=== PATIENT | female | born 1960 | race Caucasian/White ===

== ENCOUNTER 2016-10-23 08:05 | Outpatient (CLI) | payer MEDICAID | END 2016-10-23 08:06 | disposition home or self-care (01) | DX: E11.9 Type 2 diabetes mellitus without complications (principal) ==

== ENCOUNTER 2017-01-22 08:03 | Outpatient (CLI) | payer MEDICAID | END 2017-01-22 08:04 | disposition home or self-care (01) | DX: E11.9 Type 2 diabetes mellitus without complications (principal) ==

== ENCOUNTER 2017-03-19 08:38 | Day surgery (SDC) | payer MEDICAID ==
[2017-03-19] MEDS ORDERED: LACTATED RINGERS 1,000 ML IV ONE (08:51)
[2017-03-19] MEDS ORDERED: GLYCOPYRROLATE 1 MG/5 ML VIAL ONE (11:30)
[2017-03-19] MEDS ORDERED: fentaNYL 100 MCG/2 ML VIAL IVP ONE (11:50)
[2017-03-19] MEDS ORDERED: LIDOCAINE-MPF 2% 5 ML VIAL IM ONE (11:50)
[2017-03-19] MEDS ORDERED: DEXAMETHASONE 4 MG/ML VIAL IVP ONE (11:50)
[2017-03-19] MEDS ORDERED: SUCCINYLCHOLINE 200 MG/10 ML VIAL IVP ONE (11:50)
[2017-03-19] MEDS ORDERED: ALBUTEROL 6.7 GM INHALER INH ONE (11:50)
[2017-03-19] MEDS ORDERED: PROPOFOL 200 MG/20 ML VIAL IVP ONE (11:50)
[2017-03-19] MEDS ORDERED: GLYCOPYRROLATE 1 MG/5 ML VIAL IVP ONE (11:50)
[2017-03-19] MEDS ORDERED: MIDAZOLAM 2 MG/2 ML VIAL IVP ONE (11:50)
[2017-03-19] MEDS ORDERED: ONDANSETRON 4 MG/2 ML VIAL IVP ONE (11:50)
[2017-03-19] MEDS ORDERED: KETOROLAC 30 MG/ML VIAL IVP ONE (11:50)
[2017-03-19] MEDS ORDERED: NEOSTIGMINE 1 MG/1 ML 10 ML MDV IVP ONE (11:50)
[2017-03-19] MEDS ORDERED: KETAMINE 500 MG/10 ML VIAL IVP ONE (11:50)
[2017-03-19] MEDS ORDERED: BUPIVACAINE 0.5%-EPI 1:200000 PF 30 ML VIAL SUBQ ONE (11:51)
[2017-03-19] MEDS ORDERED: LIDOCAINE JELLY 2% 5 ML TUBE TOP ONE (11:53)
[2017-03-19 13:35] VITALS: BP 127/82
--- NOTE | 2017-03-19 13:55 | OPERATIVE REPORT ---
DATE OF SURGERY: 03/19/2017 00:00:00 TIME: 12:30. PREOPERATIVE DIAGNOSIS: Anal fissure. PROCEDURE: Examination under anesthesia, anal dilation, and anal fissurectomy. POSTOPERATIVE DIAGNOSES 1. Anal fissure. 2. Significant anal prolapse and rectal prolapse. SURGEON: Goran Anne MD. ANESTHESIA: Saldaña (general endotracheal), plus 30 mL of 0.5% Marcaine with epinephrine. COMPLICATIONS: None. ESTIMATED BLOOD LOSS: Less than 5 mL. FLUIDS: 700 mL crystalloid. DETAILS OF PROCEDURE: After informed consent was obtained detailing the risks of infection, bleeding with all of its risks, and , the patient was brought to the operative suite and placed supine on the operating table. No antibiotics were necessary for this procedure. The patient had TEDs and Veno dynes placed for prophylaxis against surgical infection. The patient was then anesthetized per the pr ocedure by Francisco Saldaña, and Francisco Saldaña provided anesthesia care for the entirety of the case. Th e patient was then placed in modified lithotomy position and prepped and draped in the usual standard manner. At this point, a time-in was done that confirmed the patient's identity via 3 identifiers in cluding her name, medical record number, and date of . We also confirmed her allergies, medicati ons, the operation. We made sure that a history and physical was in the chart, as well as a consent f orm and that consent form conformed to what the proposed procedure was. Finally, we confirmed that we had the personnel and equipment to perform the proposed procedure. With the agreement of everyone in the room, the operation was allowed to proceed. External examination revealed a fissure at the 6-o'clock position, but external examination also reve aled a significant anorectal prolapse. This was not appreciated in the office as the patient was not bearing down. In addition, the patient was not in this position in my office. My initial thought was that anal stenosis was playing a role in the fissure formation, but in reality this is a prolapse cau sing this fissure to form. The anus was circumferentially injected using 0.5% Marcaine with epinephri ne. More attention was placed at the 6-o'clock position, which was the location of the fissure. One, two, then three fingers were placed in the patient's anus without any resistance due to the large susie ure of the anus, due to the anal dilation. The fissure was resected using serial application of Bovie electrocautery. A Gelfoam roll consisting of Gelfoam and lidocaine jelly was then made and inserted in the patient's anus. A small what appeared to be an anal papilla at the 6 o'clock position was russ rishi using Bovie electrocautery and sent for pathologic evaluation. The patient, then having tolerated the procedure well, was extubated and taken to the recovery room in good and stable condition. JOB #: [id number] EXT JOB #:[id number]
== END 2017-03-19 08:39 | disposition home or self-care (01) ==
LOC: SDS 08:38
PROVIDERS: ATTEND Surgery
PROC: 0DBQ7ZZ Excision of Anus, Via Natural or Artificial Opening (ICD-10-PCS; principal; 2017-03-19 09:45)
DX: K60.2 Anal fissure, unspecified (principal); K64.4 Residual hemorrhoidal skin tags; K62.2 Anal prolapse; K62.3 Rectal prolapse; E66.01 Morbid (severe) obesity due to excess calories; Z68.37 Body mass index [BMI] 37.0-37.9, adult; E11.9 Type 2 diabetes mellitus without complications; E78.5 Hyperlipidemia, unspecified; F31.9 Bipolar disorder, unspecified
CPT/HCPCS: 46200; J3490; J7120; J7613; 88304

== ENCOUNTER 2017-05-31 08:16 | Outpatient (CLI) | payer MEDICAID ==
[2017-05-31 08:50] LABS: BASOPHILS # (AUTO) 0.1 10^3/uL (0.0-0.1); BASOPHILS % (AUTO) 0.7 %; EOSINOPHILS # (AUTO) 0.3 10^3/uL (0.0-0.7); EOSINOPHILS % (AUTO) 4.1 %; HCT - HEMATOCRIT 43.6 % (37.0-47.0); HGB - HEMOGLOBIN 14.9 g/dL (12.0-16.0); LYMPHOCYTES # (AUTO) 2.8 10^3/uL (1.5-3.5); LYMPHOCYTES % (AUTO) 37.5 %; MEAN CORPUSCULAR HEMOGLOBIN 31.1 pg (27.0-31.0); MEAN CORPUSCULAR HGB CONC 34.3 g/dL (32.0-36.0); MEAN CORPUSCULAR VOLUME 90.7 fL (81.0-99.0); MEAN PLATELET VOLUME 8.1 fL (7.9-10.8); MONOCYTES # (AUTO) 0.5 10^3/uL (0.0-1.0); MONOCYTES % (AUTO) 7.4 %; NEUTROPHILS # (AUTO) 3.7 10^3/uL (1.5-6.6); NEUTROPHILS % (AUTO) 50.3 %; NUCLEATED RED BLOOD CELLS AUTO 0.1 /100WBC; RED CELL DISTRIBUTION WIDTH 14.5 % (12.0-15.0); UNCORRECTED WHITE BLOOD COUNT 7.4 x10^3/uL; WHITE BLOOD COUNT 7.4 x10^3/uL (4.8-10.8)
[2017-05-31 09:06] LABS: ALBUMIN/GLOBULIN RATIO 1.6 (1.0-2.2); BILIRUBIN,TOTAL 0.5 mg/dL (0.2-1.0); BUN - BLOOD UREA NITROGEN 17 mg/dL (6-20); CALCIUM 8.9 mg/dL (8.5-10.3); CARBON DIOXIDE - CO2 25 mmol/L (21-32); CHLORIDE 106 mmol/L (101-111); CHOLESTEROL 113 mg/dL; CREATININE 0.9 mg/dL (0.4-1.0); GFR - MDRD 65 (>89); GLUCOSE 201 mg/dL (70-100); HDL CHOLESTEROL 28 mg/dL; LDL/HDL RATIO 0.2 (<4.4); POTASSIUM 4.2 mmol/L (3.5-5.0); SODIUM 139 mmol/L (135-145); TOTAL PROTEIN 6.9 g/dL (6.7-8.2); TRIGLYCERIDES 399 mg/dL; VLDL CHOLESTEROL 80 mg/dL
[2017-05-31 09:40] LABS: HEMOGLOBIN A1C 0.92 g/dL
== END 2017-05-31 08:17 | disposition home or self-care (01) ==
LOC: LAB 08:16
PROVIDERS: ATTEND Family Medicine
DX: E78.5 Hyperlipidemia, unspecified (principal); E11.9 Type 2 diabetes mellitus without complications
CPT/HCPCS: 36415; 80053; 80061; 83036; 85025

== ENCOUNTER 2017-09-12 14:49 | Outpatient (CLI) | payer MEDICAID ==
[2017-09-12 14:08] LABS: HEMOGLOBIN A1C 1.12 g/dL
[2017-09-12 14:09] LABS: ALBUMIN/GLOBULIN RATIO 1.9 (1.0-2.2); BILIRUBIN,TOTAL 0.5 mg/dL (0.2-1.0); BUN - BLOOD UREA NITROGEN 16 mg/dL (6-20); CALCIUM 9.3 mg/dL (8.5-10.3); CARBON DIOXIDE - CO2 26 mmol/L (21-32); CHLORIDE 102 mmol/L (101-111); CHOL/HDL RATIO 4.1 (<4.4); CHOLESTEROL 123 mg/dL; CREATININE 0.8 mg/dL (0.4-1.0); GFR - MDRD 74 (>89); GLUCOSE 225 mg/dL (70-100); HDL CHOLESTEROL 30 mg/dL; POTASSIUM 3.8 mmol/L (3.5-5.0); SODIUM 136 mmol/L (135-145); TOTAL PROTEIN 6.9 g/dL (6.7-8.2); TRIGLYCERIDES 492 mg/dL
[2017-09-12 14:28] LABS: LDL CHOLESTEROL,DIRECT 38 mg/dL
== END 2017-09-12 14:50 | disposition home or self-care (01) ==
LOC: LAB.N 14:49
PROVIDERS: ATTEND Family Medicine
DX: E11.65 Type 2 diabetes mellitus with hyperglycemia (principal); E78.5 Hyperlipidemia, unspecified
CPT/HCPCS: 36415; 80053; 80061; 83036

== ENCOUNTER 2018-03-25 07:02 | Outpatient (CLI) | payer MEDICAID ==
[2018-03-25 08:03] LABS: HEMOGLOBIN A1C 0.68 g/dL; HEMOGLOBIN A1C % 6.3 % (4.6-6.2)
== END 2018-03-25 07:03 | disposition home or self-care (01) ==
LOC: LAB 07:02
PROVIDERS: ATTEND Nurse Practitioner Family
DX: E11.9 Type 2 diabetes mellitus without complications (principal)
CPT/HCPCS: 36415; 83036

== ENCOUNTER 2018-05-07 08:21 | Outpatient (CLI) | payer MEDICAID ==
--- NOTE | 2018-05-08 17:23 | Mammography Report ---
Procedure Date: 05/07/2018 Accession Number: [id number] / [id number] Procedure: MGN - Screening Mammo Dig Bilat CPT Code: FULL RESULT: EXAM: Screening Mammo Dig Bilat DATE: 05/07/2018 8:44 AM CLINICAL HISTORY: 57-year-old female with family history of breast cancer in an aunt at unknown age and approximately 20 pounds weight loss since her last mammogram in 2013 presents for screening mammography. TECHNIQUE: Bilateral CC and MLO views were obtained. COMPARISON: 04/15/2014, 04/10/2013, 12/19/2011, 12/25/2010. FINDINGS: The breasts demonstrate scattered fibroglandular densities bilaterally. No suspicious masses, clustered microcalcifications, or regions of architectural distortion are identified. IMPRESSION: Negative examination RECOMMENDATION: Routine annual screening unless otherwise clinically indicated. BIRADS CATEGORY 1: Negative STANDARD QUALIFYING STATEMENTS: 1. This examination was reviewed with the aid of Computer-Aided Detection (CAD). 2. A negative or benign imaging report should not delay biopsy if clinically suspicious findings are present. Consider surgical consultation if warrented. More than 5% of cancers are not identified by imaging. 3. Dense breasts may obscure an underlying neoplasm.
== END 2018-05-07 08:22 | disposition home or self-care (01) ==
LOC: DI.N 08:21
PROVIDERS: ATTEND Obstetrics & Gynecology
DX: Z12.31 Encounter for screening mammogram for malignant neoplasm of breast (principal); Z80.3 Family history of malignant neoplasm of breast
CPT/HCPCS: 77067

== ENCOUNTER 2018-07-10 08:20 | Outpatient (CLI) | payer MEDICAID ==
[2018-07-10 09:11] LABS: BUN - BLOOD UREA NITROGEN 23 mg/dL (6-20); CALCIUM 9.1 mg/dL (8.5-10.3); CARBON DIOXIDE - CO2 24 mmol/L (21-32); CHLORIDE 104 mmol/L (101-111); CHOL/HDL RATIO 3.5 (<4.4); CHOLESTEROL 94 mg/dL; GFR - MDRD 57 (>89); GLUCOSE 154 mg/dL (70-100); HDL CHOLESTEROL 27 mg/dL; LDL CHOLESTEROL,CALCULATED -5 mg/dL; LDL/HDL RATIO -0.2 (<4.4); SODIUM 137 mmol/L (135-145); VLDL CHOLESTEROL 72 mg/dL
[2018-07-10 13:32] LABS: HB2 TOTAL 15.8 g/dL; HEMOGLOBIN A1C 0.73 g/dL; HEMOGLOBIN A1C % 6.4 % (4.6-6.2)
== END 2018-07-10 08:21 | disposition home or self-care (01) ==
LOC: LAB 08:20
PROVIDERS: ATTEND Nurse Practitioner Family
DX: E11.9 Type 2 diabetes mellitus without complications (principal); E78.5 Hyperlipidemia, unspecified
CPT/HCPCS: 36415; 80048; 80061; 82043; 83036; 83721

== ENCOUNTER 2018-09-26 14:19 | Outpatient (CLI) | payer MEDICAID ==
--- NOTE | 2018-09-26 17:00 | DEXA Report ---
Reason: POSTMENOPAUSAL, FIBROMYALGIA, LOW BACK PAIN Procedure Date: 09/26/2018 Accession Number: [id number] / [id number] Procedure: DEX - Dexa Spine and/or Hip CPT Code: FULL RESULT: EXAM: Dexa Spine and/or Hip DATE: 09/26/2018 2:45 PM CLINICAL HISTORY: POSTMENOPAUSAL, FIBROMYALGIA, LOW BACK PAIN TECHNIQUE: Dual energy x-ray absorptiometry (DXA) was performed on a [employer] System. Regions measured are the AP Spine, femoral neck, and if needed forearm. COMPARISON: None. In accordance with the International Society for Clinical Densitometry (ISCD) guidelines, data from previous exams may be reanalyzed using current recommendations and techniques. This is done to allow a more accurate basis for comparison with the current study. FINDINGS: The data for the lumbar spine is as follows: BMD (g/cm/cm) T-SCORE Z-SCORE REGION L1 1.230 0.8 0.9 L2 1.181 -0.2 -0.1 L3 1.146 -0.4 -0.4 L4 1.273 0.6 0.7 TOTAL 1.211 0.3 0.3 NOTE: All evaluable vertebrae are used for classification The data for the hip is as follows: BMD (g/cm/cm) T-SCORE Z-SCORE REGION Neck 0.847 -1.4 -0.8 TOTAL 1.027 0.1 0.3 NOTE: The femoral neck or total proximal femur, whichever is lowest, is used for classification. IMPRESSION: THE WHO CLASSIFICATION BASED ON THE INTERNATIONAL REFERENCE STANDARD IS OSTEOPENIA. THE FRACTURE RISK IS INCREASED. RECOMMENDATION: Patients with diagnosis of osteoporosis or osteopenia should have regular bone mineral density assessment. For those eligible for Medicare, routine testing is allowed once every 2 years. Testing frequency can be increased for patients who have rapidly progressing disease or for those who are receiving medical therapy to restore bone mass. COMMENT: World Health Organization (WHO) definitions for osteoporosis and osteopenia: NORMAL BMD: T-score at -1.0 or higher, fracture risk is low OSTEOPENIA BMD: T-score between -1.0 and -2.5, fracture risk is increased. OSTEOPOROSIS BMD: T-score at -2.5 or lower, fracture risk is high. National Osteoporosis Foundation recommends: 1. Obtain adequate dietary calcium (at least 1200 mg per day) and vitamin D (400-800 international units per day). 2. Participate, as appropriate, in regular weightbearing and muscle-strengthening exercise. 3. Avoid tobacco use and reduce alcohol and caffeine intake. 4. For more detailed information see the website at www.NOF.org.
--- NOTE | 2018-09-28 15:28 | XRAY Report ---
Reason: POSTMENOPAUSAL, FIBROMYALGIA, LOW BACK PAIN Procedure Date: 09/26/2018 Accession Number: [id number] / [id number] Procedure: XR - Lumbar Spine 2 View CPT Code: FULL RESULT: EXAM: LUMBOSACRAL SPINE RADIOGRAPHY EXAM DATE: 09/26/2018 02:50 PM. CLINICAL HISTORY: POSTMENOPAUSAL, FIBROMYALGIA, LOW BACK PAIN. COMPARISONS: LUMBAR SPINE COMPLETE 09/05/2013 2:37 PM. TECHNIQUE: 2 views. FINDINGS: Alignment: Normal. No spondylolisthesis or scoliosis. Bones: Five ebi-urz-hnvhxce lumbar vertebral bodies are present. Minimal anterior wedge compression deformity of the T12 and L1 vertebral bodies appears unchanged compared to 09/05/2013. No acute fractures or bone lesions. Disks: There is mild disk height loss and anterior endplate osteophyte formation throughout the lumbar spine. Facets: There are mild degenerative facet changes of the lower lumbar spine. Sacroiliac Joints: Unremarkable. Soft Tissues: Normal. The visualized bowel gas pattern is normal. IMPRESSION: 1. No acute osseous abnormality of the lumbar spine. Mild anterior wedge compression deformity of the T12 and L1 vertebral bodies appears unchanged compared to prior. 2. Multilevel mild degenerative changes throughout the lumbar spine, similar to prior. RADIA
== END 2018-09-26 14:20 | disposition home or self-care (01) ==
LOC: DI 14:19
PROVIDERS: ATTEND Nurse Practitioner
DX: M85.89 Other specified disorders of bone density and structure, multiple sites (principal); Z78.0 Asymptomatic menopausal state; M79.7 Fibromyalgia; M54.5 Low back pain; G89.29 Other chronic pain; M25.78 Osteophyte, vertebrae
CPT/HCPCS: 72100; 77080

== ENCOUNTER 2019-02-10 07:33 | Outpatient (CLI) | payer MEDICAID ==
[2019-02-10 07:46] LABS: BASOPHILS # (AUTO) 0.1 10^3/uL (0.0-0.1); BASOPHILS % (AUTO) 0.9 %; EOSINOPHILS # (AUTO) 0.3 10^3/uL (0.0-0.7); EOSINOPHILS % (AUTO) 2.5 %; HGB - HEMOGLOBIN 15.1 g/dL (12.0-16.0); LYMPHOCYTES # (AUTO) 3.4 10^3/uL (1.5-3.5); LYMPHOCYTES % (AUTO) 34.1 %; MEAN CORPUSCULAR HEMOGLOBIN 31.4 pg (27.0-31.0); MEAN CORPUSCULAR HGB CONC 34.1 g/dL (32.0-36.0); MEAN PLATELET VOLUME 7.3 fL (7.9-10.8); MONOCYTES # (AUTO) 0.8 10^3/uL (0.0-1.0); NEUTROPHILS # (AUTO) 5.5 10^3/uL (1.5-6.6); NEUTROPHILS % (AUTO) 54.5 %; PLT - PLATELET COUNT 239 10^3/uL (130-450); RED BLOOD COUNT 4.81 10^6/uL (4.20-5.40); RED CELL DISTRIBUTION WIDTH 13.6 % (12.0-15.0); WHITE BLOOD COUNT 10.1 x10^3/uL (4.8-10.8)
[2019-02-10 08:10] LABS: HB2 TOTAL 16.2 g/dL; HEMOGLOBIN A1C 0.81 g/dL; HEMOGLOBIN A1C % 6.7 % (4.6-6.2)
[2019-02-10 08:12] LABS: CREATININE,URINE 77.2 mg/dL; MICROALBUM/CREATININE RATIO,UR 5.2 ug/mg (<30.0); MICROALBUMIN,URINE 0.4 mg/dL (0-300.0)
[2019-02-10 08:14] LABS: ALBUMIN 4.4 g/dL (3.2-5.5); ALBUMIN/GLOBULIN RATIO 1.7 (1.0-2.2); ALKALINE PHOSPHATASE 75 IU/L (42-121); ALT ALANINE AMINOTRANSFERASE 46 IU/L (10-60); AST ASPARTATE AMINOTRANSFERASE 34 IU/L (10-42); BILIRUBIN,TOTAL 0.6 mg/dL (0.2-1.0); BUN - BLOOD UREA NITROGEN 18 mg/dL (6-20); CALCIUM 9.2 mg/dL (8.5-10.3); CARBON DIOXIDE - CO2 26 mmol/L (21-32); CHLORIDE 97 mmol/L (101-111); CHOL/HDL RATIO 3.8 (<4.4); CHOLESTEROL 96 mg/dL; CREATININE 0.7 mg/dL (0.4-1.0); GFR - MDRD 86 (>89); GLUCOSE 164 mg/dL (70-100); HDL CHOLESTEROL 25 mg/dL; LDL CHOLESTEROL,CALCULATED 18 mg/dL; LDL/HDL RATIO 0.7 (<4.4); SODIUM 136 mmol/L (135-145); VLDL CHOLESTEROL 53 mg/dL
== END 2019-02-10 07:34 | disposition home or self-care (01) ==
LOC: LAB 07:33
PROVIDERS: ATTEND Nurse Practitioner Family
DX: E11.9 Type 2 diabetes mellitus without complications (principal); E78.5 Hyperlipidemia, unspecified
CPT/HCPCS: 36415; 80053; 80061; 82043; 82570; 83036; 83721; 84443; 85025

== ENCOUNTER 2019-07-21 08:15 | Outpatient (CLI) | payer MEDICAID ==
--- NOTE | 2019-07-21 09:18 | Mammography Report ---
Reason: ANNUAL SCREENING Procedure Date: 07/21/2019 Accession Number: [id number] / [id number] Procedure: JOANA - Screening Mammo w/Latrell CPT Code: FULL RESULT: EXAM: Screening Mammo w/Latrell DATE: 07/21/2019 9:08 AM CLINICAL HISTORY: Screening encounter. TECHNIQUE: (B) - Bilateral CC and MLO views were obtained. COMPARISON: 05/07/2018 through 04/10/2013. PARENCHYMAL PATTERN: (F) - The breast(s) demonstrate(s) diffuse fatty replacement. FINDINGS: There are no suspicious masses, calcifications, or areas of distortion. IMPRESSION: Negative examination. BI-RADS category 1. RECOMMENDATION: (ANNUAL) - Recommend routine annual screening mammography. BI-RADS CATEGORY: (1) - Negative. STANDARD QUALIFYING STATEMENTS: 1. This examination was not reviewed with the aid of Computer-Aided Detection (CAD). 2. A negative or benign imaging report should not preclude biopsy if clinically suspicious findings are present. 3. Dense breasts may obscure an underlying neoplasm. 4. This examination was reviewed with the aid of 3D breast imaging (tomosynthesis).
== END 2019-07-21 08:16 | disposition home or self-care (01) ==
LOC: DI 08:15
DX: Z12.31 Encounter for screening mammogram for malignant neoplasm of breast (principal)
CPT/HCPCS: 77063; 77067

== ENCOUNTER 2019-11-19 08:58 | Outpatient (CLI) | payer MEDICAID ==
[2019-11-19 09:22] LABS: CALCIUM 9.4 mg/dL (8.5-10.3); CREATININE 0.8 mg/dL (0.4-1.0)
[2019-11-19 09:37] LABS: HB2 TOTAL 15.6 g/dL; HEMOGLOBIN A1C 0.89 g/dL; HEMOGLOBIN A1C % 7.4 % (4.6-6.2)
== END 2019-11-19 08:59 | disposition home or self-care (01) ==
LOC: LAB 08:58
PROVIDERS: ATTEND Nurse Practitioner
DX: E11.9 Type 2 diabetes mellitus without complications (principal)
CPT/HCPCS: 36415; 80048; 83036

== ENCOUNTER 2020-06-01 07:28 | Outpatient (CLI) | payer MEDICAID ==
[2020-06-01 08:03] LABS: ALBUMIN 4.6 g/dL (3.2-5.5); ALBUMIN/GLOBULIN RATIO 1.8 (1.0-2.2); ALKALINE PHOSPHATASE 109 IU/L (42-121); ALT ALANINE AMINOTRANSFERASE 41 IU/L (10-60); AST ASPARTATE AMINOTRANSFERASE 27 IU/L (10-42); BILIRUBIN,TOTAL 0.7 mg/dL (0.2-1.0); BUN - BLOOD UREA NITROGEN 18 mg/dL (6-20); CALCIUM 9.2 mg/dL (8.5-10.3); CARBON DIOXIDE - CO2 25 mmol/L (21-32); CHLORIDE 103 mmol/L (101-111); CHOL/HDL RATIO 3.5 (<4.4); CHOLESTEROL 108 mg/dL; CREATININE 0.8 mg/dL (0.4-1.0); GLUCOSE 189 mg/dL (70-100); HDL CHOLESTEROL 31 mg/dL; SODIUM 137 mmol/L (135-145); TOTAL PROTEIN 7.2 g/dL (6.7-8.2)
[2020-06-01 08:19] LABS: CREATININE,URINE 24.2 mg/dL; MICROALBUM/CREATININE RATIO,UR 16.5 ug/mg (<30.0); MICROALBUMIN,URINE 0.4 mg/dL (0-300.0)
[2020-06-01 08:24] LABS: LDL CHOLESTEROL,DIRECT 36 mg/dL; LDLD/HDL RATIO 1.2 (<4.4)
[2020-06-01 11:48] LABS: HEMOGLOBIN A1c% 7.8 % (4.27-6.07)
== END 2020-06-01 07:29 | disposition home or self-care (01) ==
LOC: LAB 07:28
PROVIDERS: ATTEND Internal Medicine
DX: E11.9 Type 2 diabetes mellitus without complications (principal); E78.5 Hyperlipidemia, unspecified
CPT/HCPCS: 36415; 80053; 80061; 82043; 82570; 83036; 83721

== ENCOUNTER 2020-07-25 19:42 | Outpatient (CLI) | payer MEDICAID | END 2020-07-25 19:43 | disposition home or self-care (01) | LOC: COV 19:42 | PROVIDERS: ATTEND Family Medicine | DX: R05 Cough (principal); Z20.828 Contact with and (suspected) exposure to other viral communicable diseases; R53.83 Other fatigue; R19.7 Diarrhea, unspecified; R09.81 Nasal congestion; J02.9 Acute pharyngitis, unspecified; M79.10 Myalgia, unspecified site ==

== ENCOUNTER 2020-07-30 09:39 | Outpatient (CLI) | payer MEDICAID | END 2020-07-30 09:40 | disposition home or self-care (01) | LOC: RT 09:39 | PROVIDERS: ATTEND Nurse Practitioner | DX: J44.9 Chronic obstructive pulmonary disease, unspecified (principal) | CPT/HCPCS: 94010 ==

== ENCOUNTER 2020-09-22 07:51 | Outpatient (CLI) | payer MEDICAID ==
[2020-09-22 08:37] LABS: ALBUMIN 4.7 g/dL (3.2-5.5); ALBUMIN/GLOBULIN RATIO 1.7 (1.0-2.2); ALKALINE PHOSPHATASE 61 IU/L (42-121); ALT ALANINE AMINOTRANSFERASE 50 IU/L (10-60); AST ASPARTATE AMINOTRANSFERASE 40 IU/L (10-42); BILIRUBIN,TOTAL 0.7 mg/dL (0.2-1.0); BUN - BLOOD UREA NITROGEN 20 mg/dL (6-20); CALCIUM 9.5 mg/dL (8.5-10.3); CARBON DIOXIDE - CO2 25 mmol/L (21-32); CHLORIDE 100 mmol/L (101-111); CHOL/HDL RATIO 2.9 (<4.4); CHOLESTEROL 94 mg/dL; CREATININE 0.8 mg/dL (0.4-1.0); GLUCOSE 187 mg/dL (70-100); HDL CHOLESTEROL 32 mg/dL; LDL CHOLESTEROL,CALCULATED -7 mg/dL; LDL/HDL RATIO -0.2 (<4.4); SODIUM 140 mmol/L (135-145); TOTAL PROTEIN 7.5 g/dL (6.7-8.2); VLDL CHOLESTEROL 69 mg/dL
[2020-09-22 09:52] LABS: HEMOGLOBIN A1c% 7.3 % (4.27-6.07)
== END 2020-09-22 07:52 | disposition home or self-care (01) ==
LOC: LAB 07:51
PROVIDERS: ATTEND Nurse Practitioner
DX: E11.9 Type 2 diabetes mellitus without complications (principal); E78.5 Hyperlipidemia, unspecified
CPT/HCPCS: 36415; 80053; 80061; 83036; 83721

== ENCOUNTER 2020-09-26 11:00 | Outpatient (CLI) | payer MEDICAID ==
--- NOTE | 2020-09-26 14:45 | Mammography Report ---
BILATERAL DIGITAL SCREENING MAMMOGRAM 3D/2D: 09/26/2020 CLINICAL: Routine screening. Comparison is made to exams dated: 07/21/2019 mammogram, 05/07/2018 mammogram, 04/15/2014 mammogram, 04/10/2013 mammogram, 12/19/2011 mammogram, and 12/25/2010 mammogram - [facility]. The t issue of both breasts is predominantly fatty. No significant masses, calcifications, or other findings are seen in either breast. There has been no significant interval change. IMPRESSION: NEGATIVE There is no mammographic evidence of malignancy. A 1 year screening mammogram is recommended. This exam was interpreted at Station ID: [id number]. NOTE: For mammograms, a report in lay terms will be sent to the patient. Approximately 15% of breast malignancies will not be visualized mammographically. In the management of a palpable breast mass, a negative mammogram must not discourage biopsy of a clinically suspicious lesion. Electronically Signed By: Oralia oliver/bari:09/26/2020 12:00:08 ACR BI-RADS Category 1: Negative 3341F PARENCHYMAL PATTERN: (F) - The breast(s) demonstrate(s) diffuse fatty replacement. BI-RADS CATEGORY: (1) - 1 RECOMMENDATION: (ANNUAL) - Recommend routine annual screening mammography. [id number] 1 year screening LATERALITY: (B)
== END 2020-09-26 11:01 | disposition home or self-care (01) ==
LOC: DI.N 11:00
PROVIDERS: ATTEND Nurse Practitioner
DX: Z12.31 Encounter for screening mammogram for malignant neoplasm of breast (principal)
CPT/HCPCS: 77067

== ENCOUNTER 2020-10-27 10:01 | Outpatient (CLI) | payer MEDICAID ==
--- NOTE | 2020-10-27 15:17 | XRAY Report ---
PROCEDURE: Lumbar Spine Complete INDICATIONS: ACUTE LOW BACK PAIN TECHNIQUE: 4 views of the lumbar spine were acquired. COMPARISON: X-ray lumbar spine 09/28/2018 FINDINGS: Bones: 5 vuy-wcc-eqsgqdr vertebrae are present. There is trace retrolisthesis of L1 on L2, L2 on L3 , trace anterolisthesis of L4 on L5. Mild to moderate disc and foraminal narrowing is noted at L5-S1. Mild anterior wedge deformities at T12 and L1 are unchanged. No vertebral body compression fractures . No suspicious bony lesions. Soft tissues: Overlying bowel gas pattern is normal. No suspicious soft tissue calcifications. IMPRESSION: Degenerative changes most notable at L5-S1 as above. Reviewed by: Brisa Rodriguez MD on 10/27/2020 3:16 PM PST Approved by: Brisa Rodriguez MD on 10/27/2020 3:16 PM PST Station ID: [id number]
--- NOTE | 2020-10-27 15:18 | XRAY Report ---
PROCEDURE: SI Joints INDICATIONS: ACUTE LOW BACK PAIN TECHNIQUE: 3 views of the sacroiliac joints were acquired. COMPARISON: X-ray lumbar spine 10/27/2020 FINDINGS: Bones: No bony erosions or ankylosis. No suspicious bony lesions. No fractures. Soft tissues: Overlying bowel gas pattern is normal. No suspicious soft tissue densities. IMPRESSION: SI joints are patent. Reviewed by: Brisa Rodriguez MD on 10/27/2020 3:16 PM PST Approved by: Brisa Rodriguez MD on 10/27/2020 3:16 PM [facility] Station ID: [id number]
== END 2020-10-27 10:02 | disposition home or self-care (01) ==
LOC: DI 10:01
PROVIDERS: ATTEND Family Medicine
DX: M47.817 Spondylosis without myelopathy or radiculopathy, lumbosacral region (principal)

== ENCOUNTER 2021-01-13 15:44 | Outpatient (CLI) | payer MEDICAID ==
--- NOTE | 2021-01-13 16:11 | CT Report ---
PROCEDURE: Low Dose Lung Cancer Screen INDICATIONS: CURRENT SMOKER TECHNIQUE: Noncontrast low-dose 5 mm thick sections acquired from the pulmonary apices to the posterior costophr enic angles. 7 mm thick coronal and sagittal MIP reformats were then acquired. For radiation dose r eduction, the following was used: automated exposure control, adjustment of mA and/or kV according t o patient size. COMPARISON: None. FINDINGS: Image quality: Excellent. Lungs and pleura: No suspicious pulmonary nodule or mass. No abnormal airspace opacity otherwise. Mi ld apical predominant centrilobular emphysematous change. No significant pleural abnormality. Mediastinum: Heart size is normal. No pericardial effusion. No mediastinal adenopathy by size crit eria. Thoracic aorta and central pulmonary arteries are normal in size. Esophagus is normal in noris allyssa. No hiatal hernia. Bones and chest wall: No suspicious bony lesions. No vertebral body compression fractures. No axil ade or supraclavicular adenopathy by size criteria. The thyroid is normal in size. Abdomen: Visualized upper abdomen solid organs and bowel loops appear normal in the absence of contr ast. IMPRESSION: No suspicious pulmonary nodule or mass. Lung-RADS category 1. Continued annual low-dose CT [facility] the [facility] for lung cancer screening is recommended. Reviewed by: Stanislaw Boyer MD on 01/13/2021 4:09 PM PDT Approved by: Stanislaw Boyer MD on 01/13/2021 4:09 PM PDT Station ID: [id number]
== END 2021-01-13 15:45 | disposition home or self-care (01) ==
LOC: DI 15:44
PROVIDERS: ATTEND Nurse Practitioner
DX: Z12.2 Encounter for screening for malignant neoplasm of respiratory organs (principal); F17.210 Nicotine dependence, cigarettes, uncomplicated

== ENCOUNTER 2021-02-22 07:36 | Outpatient (CLI) | payer MEDICAID ==
[2021-02-22 08:13] LABS: ALBUMIN 4.7 g/dL (3.2-5.5); ALBUMIN/GLOBULIN RATIO 1.7 (1.0-2.2); ALKALINE PHOSPHATASE 87 IU/L (42-121); ALT ALANINE AMINOTRANSFERASE 37 IU/L (10-60); AST ASPARTATE AMINOTRANSFERASE 27 IU/L (10-42); BILIRUBIN,TOTAL 0.7 mg/dL (0.2-1.0); BUN - BLOOD UREA NITROGEN 24 mg/dL (6-20); CALCIUM 9.9 mg/dL (8.5-10.3); CARBON DIOXIDE - CO2 25 mmol/L (21-32); CHLORIDE 100 mmol/L (101-111); CHOL/HDL RATIO 3.7 (<4.4); CHOLESTEROL 99 mg/dL; GFR - MDRD 57 (>89); GLUCOSE 217 mg/dL (70-100); HDL CHOLESTEROL 27 mg/dL; LDL CHOLESTEROL,CALCULATED 0 mg/dL; POTASSIUM 4.1 mmol/L (3.5-5.0); SODIUM 136 mmol/L (135-145); TOTAL PROTEIN 7.5 g/dL (6.7-8.2); TRIGLYCERIDES 358 mg/dL; VLDL CHOLESTEROL 72 mg/dL
[2021-02-22 08:24] LABS: THYROID STIMULATING HORMONE 2.05 uIU/mL (0.34-5.60)
[2021-02-22 08:34] LABS: CREATININE,URINE 77.7 mg/dL; MICROALBUM/CREATININE RATIO,UR 6.4 ug/mg (<30.0); MICROALBUMIN,URINE 0.5 mg/dL (0-300.0)
[2021-02-22 14:02] LABS: ESTIMATED AVERAGE GLUCOSE 169 mg/dL (70-100); HEMOGLOBIN A1c% 7.5 % (4.27-6.07)
== END 2021-02-22 07:37 | disposition home or self-care (01) ==
LOC: LAB 07:36
PROVIDERS: ATTEND Physician Assistant Medical
DX: E11.9 Type 2 diabetes mellitus without complications (principal)
CPT/HCPCS: 36415; 80053; 80061; 82043; 82570; 83036; 83721; 84443

== ENCOUNTER 2021-09-27 08:21 | Outpatient (CLI) | payer MEDICAID ==
--- NOTE | 2021-09-28 10:30 | Mammography Report ---
BILATERAL DIGITAL SCREENING MAMMOGRAM 3D/2D: 09/27/2021 CLINICAL: Routine screening. Comparison is made to exams dated: 09/26/2020 mammogram, 07/21/2019 mammogram, 05/07/2018 mammogram, mammogram, 04/10/2013 mammogram, and 12/19/2011 mammogram - [facility]. The tissue of both breasts is predominantly fatty. No significant masses, calcifications, or other findings are seen in either breast. There has been no significant interval change. IMPRESSION: NEGATIVE There is no mammographic evidence of malignancy. A 1 year screening mammogram is recommended. This exam was interpreted at Station ID: [id number]. NOTE: For mammograms, a report in lay terms will be sent to the patient. Approximately 15% of breast malignancies will not be visualized mammographically. In the management of a palpable breast mass, a negative mammogram must not discourage biopsy of a clinically suspicious lesion. Electronically Signed By: Stanislaw Boyer M.D., jr/bari:09/27/2021 12:29:37 ACR BI-RADS Category 1: Negative 3341F PARENCHYMAL PATTERN: (F) - The breast(s) demonstrate(s) diffuse fatty replacement. BI-RADS CATEGORY: (1) - 1 RECOMMENDATION: (ANNUAL) - Recommend routine annual screening mammography. [id number] 1 year screening LATERALITY: (B)
== END 2021-09-27 08:22 | disposition home or self-care (01) ==
LOC: DI.N 08:21
PROVIDERS: ATTEND Nurse Practitioner
DX: Z12.31 Encounter for screening mammogram for malignant neoplasm of breast (principal)

== ENCOUNTER 2021-10-18 09:30 | Emergency (ER) | payer MEDICAID ==
[2021-10-18 09:44] VITALS: BP 138/74
--- NOTE | 2021-10-18 10:10 | ED Physician Documentation ---
History of Present Illness - Stated complaint Stated Complaint: F GI - Chief complaint Chief Complaint: General - History obtained from History obtained from: Patient - Additonal information Additional information: 61-year-old woman with type 2 diabetes thinks she has had rectal prolapse before but it had never seen it. She was straining on the toilet this morning developed a painful rectal prolapse which has since reduced. There was some bright red blood per rectum with it. Review of Systems Constitutional: denies: Fever, Chills Cardiac: reports: Reviewed and negative Respiratory: reports: Reviewed and negative PD PAST MEDICAL HISTORY - Past Medical History Cardiovascular: None, High cholesterol Respiratory: None Endocrine/Autoimmune: Type 2 diabetes GI: GERD, Diverticulitis : None HEENT: Chronic vision loss Psych: Depression, Anxiety, Bipolar disorder, Post traumatic stress disorder Musculoskeletal: Osteoarthritis, Fibromyalgia, Chronic back pain - Past Surgical History Past Surgical History: Yes HEENT: Tonsil/Adenoidectomy - Present Medications Home Medications: Ambulatory Orders Medication Instructions Recorded Confirmed Buspirone HCl 15 mg PO TID 09/01/13 05/19/18 Metformin HCl 1,000 mg PO BID 09/01/13 05/19/18 Simvastatin 40 mg PO QPM 09/01/13 05/19/18 clonazePAM [KlonoPIN] 1 mg PO HS 09/01/13 05/19/18 traZODone [Desyrel] 100 mg PO HS 09/01/13 05/19/18 Citalopram Hydrobromide 40 mg PO DAILY 03/14/17 05/19/18 [Citalopram HBr] Glipizide [Glipizide Xl] 10 mg PO BID 03/14/17 05/19/18 Pramipexole Di-HCl [Mirapex] 2 tab PO BID 03/14/17 05/19/18 hydrOXYzine pamoate [Hydroxyzine 50 - 100 mg PO DAILY PRN 03/14/17 05/19/18 Pamoate] Multivitamin [Multivitamins] 1 each PO DAILY 01/01/18 05/19/18 Docusate Sodium 100Mg Capsule 100 mg PO BID #60 cap 10/18/21 [Colace 100Mg Capsule] polyethylene glycoL 3350 [Miralax] 17 gm PO DAILY PRN #1 bottle 10/18/21 - Allergies Allergies/Adverse Reactions: Allergies Allergy/AdvReac Type Severity Reaction Status Date / Time cefaclor [From Ceclor] Allergy Vomiting Verified 10/18/21 09:45 prazosin Allergy Unknown Verified 10/18/21 09:45 Sulfa (Sulfonamide Allergy Rash Verified 10/18/21 09:45 Antibiotics) lamotrigine [From Lamictal] AdvReac Unknown Verified 10/18/21 09:45 lithium AdvReac Unknown Verified 10/18/21 09:45 NSAIDS (Non-Steroidal AdvReac Unknown Verified 10/18/21 09:45 Anti-Inflamma - Social History Does the pt smoke?: No Smoking Status: Never smoker Does the pt drink ETOH?: No Does the pt have substance abuse?: No PD ED PE NORMAL - Vitals Vital signs reviewed: Yes - General General: Alert and oriented X 3, No acute distress - Abdomen Abdomen: Normal bowel sounds, Soft, Non tender - Female Female : Other (She has an incompetent anal sphincter but no active rectal prolapse. There is a small amount of bright red blood in the vault. Exam done with Kailey BILLINGSLEY present) - Neuro Neuro: Alert and oriented X 3, Normal speech - Psych Psych: Normal mood, Normal affect Results - Vitals Vitals: Vital Signs - 24 hr 10/18/21 09:41 Temperature 36.6 C Heart Rate 74 Respiratory 17 Rate Blood Pressure 138/74 H O2 Saturation 99 Oxygen O2 Source Room air PD MEDICAL DECISION MAKING - ED course ED course: 61-year-old woman with resolved rectal prolapse. Discussed the need for follow- up and keeping her stool soft. Departure - Departure Disposition: 01 Home, Self Care Clinical Impression: Rectal prolapse Condition: Good Record reviewed to determine appropriate education?: Yes Instructions: ED Prolapse Rectal Follow-Up: Surgical Care [Provider Group] Prescriptions: Docusate Sodium 100Mg Capsule [Colace 100Mg Capsule] 100 mg PO BID #60 cap polyethylene glycoL 3350 [Miralax] 17 gm PO DAILY PRN #1 bottle PRN Reason: Constipation Comments: I sent your prescriptions electronically to [facility] in [place]. As discussed, we want to keep your stools very soft. Return for new or worsening symptoms, follow-up with the surgeons office, call today for next available appointment.
== END 2021-10-18 11:38 | disposition home or self-care (01) ==
LOC: ED 09:30
DX: K62.3 Rectal prolapse (principal); E11.9 Type 2 diabetes mellitus without complications; Z79.84 Long term (current) use of oral hypoglycemic drugs
CPT/HCPCS: 99282

== ENCOUNTER 2021-12-08 10:00 | Outpatient (CLI) | payer MEDICAID ==
--- NOTE | 2021-12-08 15:40 | XRAY Report ---
PROCEDURE: Shoulder 2 View BILAT INDICATIONS: SHOULDER PAIN, BILAT TECHNIQUE: 4 views of the shoulder were acquired. COMPARISON: None. FINDINGS: Bones: No fractures or dislocations. Moderate bilateral acromioclavicular joint and glenohumeral jane int osteoarthritic changes are seen worse on the right side. No suspicious bony lesions. Visualized ribs appear intact. Soft tissues: No suspicious soft tissue calcifications. IMPRESSION: Right worse than left bilateral acromioclavicular joint and glenohumeral joint osteoarth ritis. No fracture or dislocation. Reviewed by: Rusty Marley MD on 12/08/2021 3:38 PM PST Approved by: Rusty Marley MD on 12/08/2021 3:38 PM PST Station ID: [id number]
== END 2021-12-08 10:01 | disposition home or self-care (01) ==
LOC: DI.N 10:00
PROVIDERS: ATTEND Family Medicine
DX: M19.012 Primary osteoarthritis, left shoulder (principal); M19.011 Primary osteoarthritis, right shoulder

== ENCOUNTER 2021-12-27 09:40 | Outpatient (CLI) | payer MEDICAID ==
--- NOTE | 2021-12-27 17:01 | CT Report ---
PROCEDURE: Low Dose Lung Cancer Screen INDICATIONS: NICOTINE DEPENDENCE TECHNIQUE: Noncontrast low-dose images were acquired from the pulmonary apices to the posterior costophrenic ang les. Multiplanar MIP reformats were then acquired. For radiation dose reduction, the following was used: automated exposure control, adjustment of mA and/or kV according to patient size. COMPARISON: CT chest without contrast, 01/13/2021. FINDINGS: Image quality: Excellent. Lungs and pleura: No suspicious lung nodules. No pulmonary infiltrate or pleural effusion. Mediastinum: Heart size is normal. No pericardial effusion. No mediastinal adenopathy by size crit eria. Thoracic aorta and central pulmonary arteries are normal in size. Esophagus is normal in noris allyssa. No hiatal hernia. Bones and chest wall: No suspicious bony lesions. No vertebral body compression fractures. No axil ade or supraclavicular adenopathy by size criteria. The thyroid is normal in size and there are no incidental findings. Abdomen: Visualized upper abdomen solid organs and bowel loops appear normal in the absence of contr ast. IMPRESSION: 1. No suspicious lung nodules. ACR lung RADS category 1. Recommend annual screening lung CT in 12 mon ths. Reviewed by: Levi Gordon MD on 12/27/2021 5:00 PM PDT Approved by: Levi Gordon MD on 12/27/2021 5:00 PM PDT Station ID: [id number]
== END 2021-12-27 09:41 | disposition home or self-care (01) ==
LOC: DI 09:40
PROVIDERS: ATTEND Family Medicine
DX: Z12.2 Encounter for screening for malignant neoplasm of respiratory organs (principal); F17.200 Nicotine dependence, unspecified, uncomplicated

== ENCOUNTER 2022-01-17 17:10 | Emergency (ER) | payer MEDICAID ==
[2022-01-17 17:20] VITALS: BP 120/85
--- NOTE | 2022-01-17 17:32 | ED Physician Documentation ---
History of Present Illness - Stated complaint Stated Complaint: FEMALE - Chief complaint Chief Complaint: General - History obtained from History obtained from: Patient - Additonal information Additional information: She had a pessary placed to the clinic in [place] yesterday. Starting this morning the pessary is coming out and is quite uncomfortable. Review of Systems GI: denies: Abdominal Pain, Nausea, Vomiting : denies: Dysuria, Frequency, Hesitancy PD PAST MEDICAL HISTORY - Past Medical History Past Medical History: Yes Cardiovascular: High cholesterol Respiratory: COPD Neuro: Migraines Endocrine/Autoimmune: Type 2 diabetes GI: GERD, Diverticulitis [employer]: Other : None HEENT: Chronic vision loss Psych: Depression, Anxiety, Bipolar disorder, Post traumatic stress disorder Musculoskeletal: Osteoarthritis, Fibromyalgia, Chronic back pain Derm: Eczema - Past Surgical History Past Surgical History: Yes HEENT: Tonsil/Adenoidectomy - Present Medications Home Medications: Ambulatory Orders Medication Instructions Recorded Confirmed Buspirone HCl 15 mg PO BID 09/01/13 01/17/22 Metformin HCl 1,000 mg PO BID 09/01/13 01/17/22 Simvastatin 40 mg PO QPM 09/01/13 01/17/22 traZODone [Desyrel] 100 mg PO HS 09/01/13 01/17/22 Citalopram Hydrobromide 40 mg PO DAILY 03/14/17 01/17/22 [Citalopram HBr] Glipizide [Glipizide Xl] 10 mg PO DAILY 03/14/17 01/17/22 Pramipexole Di-HCl [Mirapex] 2 tab PO BID 03/14/17 01/17/22 Multivitamin [Multivitamins] 1 each PO DAILY 01/01/18 01/17/22 polyethylene glycoL 3350 [Miralax] 17 gm PO DAILY PRN #1 bottle 10/18/21 01/17/22 ARIPiprazole [Abilify] 10 mg PO DAILY 01/03/22 01/17/22 Albuterol Sulfate [Proair 1 mcg IH DAILY PRN 01/03/22 01/17/22 Respiclick] Cyclobenzaprine [Flexeril] 10 mg PO TID PRN 01/03/22 01/17/22 Fluticasone Propion/Salmeterol 1 puffs PO BID 01/03/22 01/17/22 [Wixela 250-50 Inhub] Oxybutynin Chloride [Ditropan Xl] 10 mg PO DAILY 01/03/22 01/17/22 Docusate Sodium 100Mg Capsule 100 mg PO DAILY 01/17/22 01/17/22 [Colace 100Mg Capsule] buPROPion [Wellbutrin Sr] 150 mg PO BID 01/17/22 01/17/22 - Allergies Allergies/Adverse Reactions: Allergies Allergy/AdvReac Type Severity Reaction Status Date / Time cefaclor [From Ceclor] Allergy Vomiting Verified 01/17/22 17:15 prazosin Allergy Unknown Verified 01/17/22 17:15 Sulfa (Sulfonamide Allergy Rash Verified 01/17/22 17:15 Antibiotics) lamotrigine [From Lamictal] AdvReac Unknown Verified 01/17/22 17:15 lithium AdvReac Unknown Verified 01/17/22 17:15 NSAIDS (Non-Steroidal AdvReac Unknown Verified 01/17/22 17:15 Anti-Inflamma - Social History Does the pt smoke?: Yes Smoking Status: Current every day smoker Does the pt drink ETOH?: No Does the pt have substance abuse?: Yes Substance Use and Type: Marijuana - Immunizations Immunizations are current?: Yes PD ED PE NORMAL - Vitals Vital signs reviewed: Yes - General General: Alert and oriented X 3, No acute distress - Abdomen Abdomen: Normal bowel sounds, Soft, Non tender - Female Female : Other (Pelvic exam done with Mariah BILLINGSLEY present chaperoning and assisting. There is a donut shaped pessary half out of the introitus and it was removed with patient's consent and request. She tolerated it well.) - Neuro Neuro: Alert and oriented X 3, Normal speech Results - Vitals Vitals: Vital Signs - 24 hr 01/17/22 17:15 Temperature 36.1 C L Heart Rate 84 Respiratory 18 Rate Blood Pressure 120/85 H O2 Saturation 97 Oxygen O2 Source Room air Departure - Departure Disposition: 01 Home, Self Care Clinical Impression: Problem with vaginal pessary Condition: Good Record reviewed to determine appropriate education?: Yes Comments: Call the dynamometer tester engine tomorrow that placed it and obviously they will need to figure out an ongoing plan for your pelvic organ prolapse.
== END 2022-01-17 18:02 | disposition home or self-care (01) ==
LOC: ED 17:10
DX: T83.9XXA Unspecified complication of genitourinary prosthetic device, implant and graft, initial encounter (principal); E11.9 Type 2 diabetes mellitus without complications; Z79.84 Long term (current) use of oral hypoglycemic drugs; F17.200 Nicotine dependence, unspecified, uncomplicated
CPT/HCPCS: 99282; 99283

== ENCOUNTER 2022-01-29 07:33 | Day surgery (SDC) | payer MEDICAID ==
[2022-01-29] MEDS ORDERED: LACTATED RINGERS 1,000 ML IV ONE ×2 (07:52→09:37)
--- NOTE | 2022-01-29 08:19 | ANESTHESIA ---
Pre-Anesthesia VS, & Labs - Diagnosis family history of colon polyps - Procedure colonoscopy Height: 5 ft 4 in Weight (kg): 76.4 kg Body Mass Index: 28.9 BMI Classification: Overweight - NPO >8 hours - Is Patient ?: No - Lab Results Lab results reviewed: Yes Home Medications and Allergies Home Medications: Ambulatory Orders ARIPiprazole [Abilify] 10 mg PO DAILY 01/03/22 Albuterol Sulfate [Proair Respiclick] 1 mcg IH DAILY PRN 01/03/22 Cyclobenzaprine [Flexeril] 10 mg PO TID PRN 01/03/22 Fluticasone Propion/Salmeterol [Wixela 250-50 Inhub] 1 puffs PO BID 01/03/22 Oxybutynin Chloride [Ditropan Xl] 10 mg PO DAILY 01/03/22 Buspirone HCl 15 mg PO BID 09/01/13 Metformin HCl 1,000 mg PO BID 09/01/13 Simvastatin 40 mg PO QPM 09/01/13 traZODone [Desyrel] 100 mg PO HS 09/01/13 Citalopram Hydrobromide [Citalopram HBr] 40 mg PO DAILY 03/14/17 Glipizide [Glipizide Xl] 10 mg PO DAILY 03/14/17 Pramipexole Di-HCl [Mirapex] 2 tab PO BID 03/14/17 Multivitamin [Multivitamins] 1 each PO DAILY 01/01/18 ARIPiprazole [Abilify] 10 mg PO DAILY 01/03/22 Albuterol Sulfate [Proair Respiclick] 1 mcg IH DAILY PRN 01/03/22 Cyclobenzaprine [Flexeril] 10 mg PO TID PRN 01/03/22 Fluticasone Propion/Salmeterol [Wixela 250-50 Inhub] 1 puffs PO BID 01/03/22 Oxybutynin Chloride [Ditropan Xl] 10 mg PO DAILY 01/03/22 Docusate Sodium 100Mg Capsule [Colace 100Mg Capsule] 100 mg PO DAILY 01/17/22 buPROPion [Wellbutrin Sr] 150 mg PO BID 01/17/22 Allergies/Adverse Reactions: Allergies Allergy/AdvReac Type Severity Reaction Status Date / Time cefaclor [From [facility]] Allergy Vomiting Verified 01/17/22 17:15 prazosin Allergy Unknown Verified 01/17/22 17:15 Sulfa (Sulfonamide Allergy Rash Verified 01/17/22 17:15 Antibiotics) lamotrigine [From Lamictal] AdvReac Unknown Verified 01/17/22 17:15 lithium AdvReac Unknown Verified 01/17/22 17:15 NSAIDS (Non-Steroidal AdvReac Unknown Verified 01/17/22 17:15 Anti-Inflamma Anes History & Medical History - Anesthetic History Anesthesia Complications: reports: No previous complications Family history of Anesthesia Complications: Denies Family history of Malignant Hyperthermia: Denies - Medical History Cardiovascular: reports: High cholesterol Pulmonary: reports: COPD Gastrointestinal: reports: GERD, Diverticulitis Urinary: reports: None Neuro: reports: Migraines Musculoskeletal: reports: Osteoarthritis, Fibromyalgia, Chronic back pain Endocrine/Autoimmune: reports: Type 2 diabetes Skin: reports: Eczema Smoking Status: Current every day smoker (quit 4 days ago) - Surgical History Eyes Ears Nose Throat (EENT): reports: Tonsil/Adenoidectomy Exam General: Alert, Oriented x3, Cooperative, No acute distress Dental: WNL, Dentures full Upper Mouth Openin Fingerbreadth Neck Mobility: Normal Mallampati classification: II Plan Anesthesia Type: General Consent for Procedure(s) Verified and Reviewed: Yes Code Status: Attempt Resuscitation ASA classification: 2-Mild systemic disease Is this case an emergency?: No
[2022-01-29] MEDS ORDERED: PROPOFOL 500 MG/50 ML 500 MG/50 ML VIAL ONE (08:26)
[2022-01-29 10:19] VITALS: BP 132/82
--- NOTE | 2022-01-29 13:44 | ANESTHESIA POST OP EVALUATION ---
Anesthesia Post Eval - Post Anesthesia Eval Vitals: Last Vital Signs Temp 36.5 C 01/29/22 10:00 Pulse 69 01/29/22 10:00 Resp 16 01/29/22 10:00 BP 132/82 H 01/29/22 10:00 Pulse Ox 94 01/29/22 10:00 CV Function Including HR & BP: Stable Pain Control: Satisfactory Nausea & Vomiting: Negative Mental Status: Baseline Respiratory Status: Airway Patent Hydration Status: Satisfactory Anesthesia Complications: None
== END 2022-01-29 07:34 | disposition home or self-care (01) ==
LOC: SDS 07:33
PROVIDERS: ATTEND Surgery
PROC: 0DBN8ZX Excision of Sigmoid Colon, Via Natural or Artificial Opening Endoscopic, Diagnostic (ICD-10-PCS; principal; 2022-01-29 08:30)
DX: Z12.11 Encounter for screening for malignant neoplasm of colon (principal); K21.9 Gastro-esophageal reflux disease without esophagitis; K57.30 Diverticulosis of large intestine without perforation or abscess without bleeding; K63.5 Polyp of colon; K64.4 Residual hemorrhoidal skin tags; K64.8 Other hemorrhoids; J44.9 Chronic obstructive pulmonary disease, unspecified; E11.9 Type 2 diabetes mellitus without complications; Z79.84 Long term (current) use of oral hypoglycemic drugs; Z87.891 Personal history of nicotine dependence
CPT/HCPCS: 45380; J7120

== ENCOUNTER 2022-04-23 09:50 | Outpatient (CLI) | payer MEDICAID | END 2022-04-23 09:51 | disposition home or self-care (01) | LOC: RT 09:50 | PROVIDERS: ATTEND Obstetrics & Gynecology | DX: Z01.810 Encounter for preprocedural cardiovascular examination (principal) | CPT/HCPCS: 93005 ==

== ENCOUNTER 2022-08-20 07:33 | Outpatient (CLI) | payer MEDICAID ==
[2022-08-20 12:22] LABS: BASOPHILS # (AUTO) 0.1 10^3/uL (0.0-0.1); BASOPHILS % (AUTO) 0.6 %; EOSINOPHILS # (AUTO) 0.3 10^3/uL (0.0-0.7); EOSINOPHILS % (AUTO) 2.7 %; HCT - HEMATOCRIT 44.6 % (37.0-47.0); HGB - HEMOGLOBIN 14.8 g/dL (12.0-16.0); LYMPHOCYTES # (AUTO) 3.6 10^3/uL (1.5-3.5); LYMPHOCYTES % (AUTO) 31.4 %; MEAN CORPUSCULAR HEMOGLOBIN 31.3 pg (27.0-31.0); MEAN CORPUSCULAR HGB CONC 33.2 g/dL (32.0-36.0); MEAN CORPUSCULAR VOLUME 94.3 fL (81.0-99.0); MEAN PLATELET VOLUME 9.3 fL (7.9-10.8); MONOCYTES # (AUTO) 0.8 10^3/uL (0.0-1.0); MONOCYTES % (AUTO) 6.8 %; NEUTROPHILS # (AUTO) 6.6 10^3/uL (1.5-6.6); NEUTROPHILS % (AUTO) 57.8 %; PLT - PLATELET COUNT 311 10^3/uL (130-450); RED BLOOD COUNT 4.73 10^6/uL (4.20-5.40); WHITE BLOOD COUNT 11.5 x10^3/uL (4.8-10.8)
[2022-08-20 12:55] LABS: ALBUMIN 4.3 g/dL (3.2-5.5); ALBUMIN/GLOBULIN RATIO 1.4 (1.0-2.2); ALKALINE PHOSPHATASE 90 IU/L (42-121); ALT ALANINE AMINOTRANSFERASE 21 IU/L (10-60); AST ASPARTATE AMINOTRANSFERASE 18 IU/L (10-42); BILIRUBIN,TOTAL 0.5 mg/dL (0.2-1.0); BUN - BLOOD UREA NITROGEN 19 mg/dL (6-20); CALCIUM 9.6 mg/dL (8.5-10.3); CARBON DIOXIDE - CO2 26 mmol/L (21-32); CHLORIDE 104 mmol/L (101-111); CHOL/HDL RATIO 3.9 (<4.4); CHOLESTEROL 143 mg/dL; GFR - MDRD 56 (>89); GLUCOSE 165 mg/dL (70-100); HDL CHOLESTEROL 37 mg/dL; LDL CHOLESTEROL,CALCULATED 48 mg/dL; LDL/HDL RATIO 1.3 (<4.4); POTASSIUM 4.5 mmol/L (3.5-5.0); SODIUM 138 mmol/L (135-145); TOTAL PROTEIN 7.4 g/dL (6.7-8.2); TRIGLYCERIDES 289 mg/dL; VLDL CHOLESTEROL 58 mg/dL
[2022-08-20 12:58] LABS: THYROID STIMULATING HORMONE 1.56 uIU/mL (0.34-5.60)
[2022-08-20 13:59] LABS: ESTIMATED AVERAGE GLUCOSE 146 mg/dL (70-100); HEMOGLOBIN A1c% 6.7 % (4.27-6.07)
== END 2022-08-20 07:34 | disposition home or self-care (01) ==
LOC: LAB.N 07:33
PROVIDERS: ATTEND Nurse Practitioner Family
DX: E11.9 Type 2 diabetes mellitus without complications (principal); E78.5 Hyperlipidemia, unspecified; F31.9 Bipolar disorder, unspecified
CPT/HCPCS: 36415; 80053; 80061; 83036; 83721; 84443; 85025

== ENCOUNTER 2022-11-05 10:53 | Outpatient (CLI) | payer MEDICAID ==
--- NOTE | 2022-11-06 11:41 | Mammography Report ---
BILATERAL DIGITAL SCREENING MAMMOGRAM 3D/2D: 11/05/2022 CLINICAL: Routine screening. Comparison is made to exams dated: 09/27/2021 mammogram, 09/26/2020 mammogram, 07/21/2019 mammogram, 05/07/2018 mammogram, 04/15/2014 mammogram, and 04/10/2013 mammogram - [facility]. Both breasts are almost entirely fatty (category a/<25% glandular tissue). No significant masses, calcifications, or other findings are seen in either breast. There has been no significant interval change. IMPRESSION: NEGATIVE There is no mammographic evidence of malignancy. A 1 year screening mammogram is recommended. Based on the Tyrer Cuzick model (a risk assessment model) the patients lifetime risk is 3.4% and her 10 year risk is 1.5%. According to the ACR, ACS, and NCCN guidelines, an annual breast MRI exam tequila g with mammogram is recommended if the patients lifetime risk is 20% or greater. This exam was interpreted at Station ID: [id number]. NOTE: For mammograms, a report in lay terms will be sent to the patient. Approximately 15% of breast malignancies will not be visualized mammographically. In the management of a palpable breast mass, a negative mammogram must not discourage biopsy of a clinically suspicious lesion. Electronically Signed By: Manuel Nelson M.D. acr/penrad:11/05/2022 11:42:47 ACR BI-RADS Category 1: Negative 3341F PARENCHYMAL PATTERN: (F) - The breast(s) demonstrate(s) diffuse fatty replacement. BI-RADS CATEGORY: (1) - 1 RECOMMENDATION: (ANNUAL) - Recommend routine annual screening mammography. [id number] 1 year screening LATERALITY: (B)
== END 2022-11-05 10:54 | disposition home or self-care (01) ==
LOC: DI.N 10:53
DX: Z12.31 Encounter for screening mammogram for malignant neoplasm of breast (principal)

== ENCOUNTER 2022-12-10 07:13 | Outpatient (CLI) | payer MEDICAID ==
[2022-12-10 13:17] LABS: ALBUMIN 4.1 g/dL (3.2-5.5); ALBUMIN/GLOBULIN RATIO 1.3 (1.0-2.2); ALKALINE PHOSPHATASE 84 IU/L (42-121); ALT ALANINE AMINOTRANSFERASE 19 IU/L (10-60); AST ASPARTATE AMINOTRANSFERASE 15 IU/L (10-42); BILIRUBIN,TOTAL 0.6 mg/dL (0.2-1.0); BUN - BLOOD UREA NITROGEN 27 mg/dL (6-20); CALCIUM 9.5 mg/dL (8.5-10.3); CARBON DIOXIDE - CO2 27 mmol/L (21-32); CHLORIDE 106 mmol/L (101-111); CHOL/HDL RATIO 3.5 (<4.4); CHOLESTEROL 114 mg/dL; CREATININE 0.8 mg/dL (0.4-1.0); GFR - MDRD 73 (>89); GLUCOSE 155 mg/dL (70-100); HDL CHOLESTEROL 33 mg/dL; LDL CHOLESTEROL,CALCULATED 24 mg/dL; LDL/HDL RATIO 0.7 (<4.4); POTASSIUM 4.1 mmol/L (3.5-5.0); SODIUM 137 mmol/L (135-145); TOTAL PROTEIN 7.2 g/dL (6.7-8.2); TRIGLYCERIDES 286 mg/dL; VLDL CHOLESTEROL 57 mg/dL
[2022-12-10 13:35] LABS: ESTIMATED AVERAGE GLUCOSE 134 mg/dL (70-100); HEMOGLOBIN A1c% 6.3 % (4.27-6.07)
== END 2022-12-10 07:14 | disposition home or self-care (01) ==
LOC: LAB.N 07:13
PROVIDERS: ATTEND Nurse Practitioner Family
DX: E11.9 Type 2 diabetes mellitus without complications (principal)
CPT/HCPCS: 36415; 80053; 80061; 82043; 82570; 83036; 83721

== ENCOUNTER 2022-12-21 08:00 | Outpatient (CLI) | payer MEDICAID ==
[2022-12-21 18:49] LABS: CREATININE,URINE 33.6 mg/dL
[2022-12-21 18:54] LABS: MICROALBUMIN,URINE < 0.2 mg/dL (0-300.0)
== END 2022-12-21 23:59 | disposition home or self-care (01) ==
LOC: LAB.N 08:00
PROVIDERS: ATTEND Family Medicine
DX: E11.9 Type 2 diabetes mellitus without complications (principal)
CPT/HCPCS: 82043; 82570

== ENCOUNTER 2023-01-07 09:42 | Outpatient (CLI) | payer MEDICAID ==
--- NOTE | 2023-01-07 11:00 | CT Report ---
PROCEDURE: Low Dose Lung Cancer Screen INDICATIONS: NICOTENE DEPENDENCE TECHNIQUE: Noncontrast low-dose axial images were acquired from the pulmonary apices to the posterior costophren ic angles. Multiplanar MIP reformats were then reconstructed. For radiation dose reduction, the follo wing was used: automated exposure control, adjustment of mA and/or kV according to patient size. COMPARISON: CT 12/27/2021 FINDINGS: Image quality: Excellent. Lungs and pleura: No pleural effusions. No pneumothorax. A couple pulmonary nodules are present, inc luding: - 3.6 mm solid nodule, peripheral right lower lobe (4/160). -3.4 mm solid nodule, left lung apex (4/42). Mediastinum: Heart size is normal. No pericardial effusions. No mediastinal adenopathy by size criter ia. No large vessel abnormality. One vessel coronary artery calcifications. Chest wall and lower neck: Thyroid is unremarkable. No axillary or supraclavicular adenopathy by size . Bones: No aggressive osseous abnormality. Upper Abdomen: Fluid attenuating left-sided hepatic cyst. IMPRESSION: Lung RAD: 2 - Benign. Continue annual screening in 12 Months with LDCT Non-Lung Significant Findings: Coronary Arterial Calcification - Moderate or Severe. Consider cardiology referral. Reviewed by: Pavan Wray on 01/07/2023 10:59 AM PDT Approved by: Pavan Wray on 01/07/2023 10:59 AM PDT Station ID: [id number]
== END 2023-01-07 09:43 | disposition home or self-care (01) ==
LOC: DI 09:42
PROVIDERS: ATTEND Nurse Practitioner Family
DX: Z12.2 Encounter for screening for malignant neoplasm of respiratory organs (principal); F17.200 Nicotine dependence, unspecified, uncomplicated; J44.9 Chronic obstructive pulmonary disease, unspecified; I25.10 Atherosclerotic heart disease of native coronary artery without angina pectoris

== ENCOUNTER 2023-02-06 08:24 | Outpatient (CLI) | payer MEDICAID ==
--- NOTE | 2023-02-06 18:57 | DEXA Report ---
PROCEDURE: Dexa Spine and/or Hip INDICATIONS: POST MENOPAUSAL TECHNIQUE: Dual energy x-ray absorptiometry (DXA) was performed on a Split System. Regions measur ed are the AP Spine, femoral neck, and if needed forearm. COMPARISON: DEXA 09/26/2018 FINDINGS: Lumbar Spine: Bone Mineral Density 1.070 g/cm/cm,T score -0.9, compared to 0.3 Left Femoral Neck: Bone Mineral Density 0.829 g/cm/cm, T score -1.5, compared to -1.4 Left Hip: Bone Mineral Density 0.986 g/cm/cm,T score -0.2, compared to 0.1 (T score greater or equal to -1.0: NORMAL) (T score from -1.1 to -2.4: OSTEOPENIA) (T score less than or equal to -2.5 to: OSTEOPOROSIS) Impression: Mild osteopenia within the left femoral neck minimally progressive. Mild bone mineral density loss wi thin the spine and hip although without osteopenia. Patients with diagnosis of osteoporosis or osteopenia should have regular bone mineral density assess ment. For those eligible for Medicare, routine testing is allowed once every 2 years. Testing frequ ency can be increased for patients who have rapidly progressing disease or for those who are receivin g medical therapy to restore bone mass. Reviewed by: Brisa Rodriguez MD on 02/06/2023 6:56 PM PDT Approved by: Brisa Rodriguez MD on 02/06/2023 6:56 PM PDT Station ID: [id number]
== END 2023-02-06 08:25 | disposition home or self-care (01) ==
LOC: DI 08:24
PROVIDERS: ATTEND Nurse Practitioner Family
DX: M85.88 Other specified disorders of bone density and structure, other site (principal); Z78.0 Asymptomatic menopausal state

== ENCOUNTER 2023-07-24 07:45 | Outpatient (CLI) | payer MEDICAID | END 2023-07-24 08:00 | disposition home or self-care (01) | LOC: LAB.N 07:45 | PROVIDERS: ATTEND Nurse Practitioner | DX: N39.0 Urinary tract infection, site not specified (principal) | CPT/HCPCS: 87086 ==

== ENCOUNTER 2023-07-27 09:10 | Outpatient (CLI) | payer MEDICAID ==
--- NOTE | 2023-07-27 12:09 | Ultrasound Report ---
PROCEDURE: Carotid Doppler Complete INDICATIONS: DIABETES TECHNIQUE: Color and pulse Doppler interrogation was performed of both carotid systems, with image documentation and velocity measurements. COMPARISON: None. FINDINGS: Right side: Brachial blood pressure: 108/76 mm Hg. Common carotid artery peak systolic velocity: 50 cm/sec. Internal carotid artery peak systolic velocity: 76 cm/sec. Internal carotid artery end diastolic velocity: 37 cm/sec. External carotid artery peak systolic velocity: 1:30 cm/sec. ICA/CCA peak systolic ratio: 1.3 . Gregory scale imaging description: No significant atherosclerotic plaque. Percent internal carotid artery stenosis: No hemodynamically significant stenosis. Vertebral artery: Flow direction is antegrade. Left side: Brachial blood pressure: 105/60 mm Hg. Common carotid artery peak systolic velocity: 53 cm/sec. Internal carotid artery peak systolic velocity: 76 cm/sec. Internal carotid artery end diastolic velocity: 34 cm/sec. External carotid artery peak systolic velocity: 88 cm/sec. ICA/CCA peak systolic ratio: 1.4 . Gregory scale imaging description: No significant atherosclerotic plaque. Percent internal carotid artery stenosis: No hemodynamically significant stenosis.. Vertebral artery: Flow direction is antegrade. IMPRESSION: 1. In the right internal carotid artery, there is no hemodynamically significant stenosis based on pe ak systolic velocity criteria. 2. In the left internal carotid artery, there is no hemodynamically significant stenosis based on pea k systolic velocity criteria. 3. Antegrade blood flow within the right vertebral artery. 4. Antegrade blood flow within the left vertebral artery. The estimate of stenosis included in the report of the imaging study was calculated using the [facility]-end orsed standards of carotid artery stenosis. Reviewed by: Brisa Rodriguez MD on 07/27/2023 12:08 PM PDT Approved by: Brisa Rodriguez MD on 07/27/2023 12:08 PM PDT Station ID: [id number]
== END 2023-07-27 09:11 | disposition home or self-care (01) ==
LOC: DI 09:10
PROVIDERS: ATTEND Nurse Practitioner Family
DX: E11.40 Type 2 diabetes mellitus with diabetic neuropathy, unspecified (principal); E78.5 Hyperlipidemia, unspecified; F17.200 Nicotine dependence, unspecified, uncomplicated
CPT/HCPCS: 93880

== ENCOUNTER 2024-01-14 07:34 | Outpatient (CLI) | payer MEDICAID ==
[2024-01-14 12:09] LABS: BUN - BLOOD UREA NITROGEN 17 mg/dL (6-20); CALCIUM 9.7 mg/dL (8.5-10.3); CARBON DIOXIDE - CO2 26 mmol/L (21-32); CHLORIDE 107 mmol/L (101-111); CHOL/HDL RATIO 3.4 (<4.4); CHOLESTEROL 126 mg/dL; CREATININE 0.9 mg/dL (0.6-1.3); GFR - MDRD 63 (>89); GLUCOSE 139 mg/dL (74-104); HDL CHOLESTEROL 37 mg/dL; LDL CHOLESTEROL,CALCULATED 32 mg/dL; LDL/HDL RATIO 0.9 (<4.4); POTASSIUM 4.2 mmol/L (3.5-4.5); SODIUM 138 mmol/L (135-145); TRIGLYCERIDES 285 mg/dL (48-352); VLDL CHOLESTEROL 57 mg/dL
[2024-01-14 14:10] LABS: ESTIMATED AVERAGE GLUCOSE 111 mg/dL (70-100); HEMOGLOBIN A1c% 5.5 % (4.27-6.07)
== END 2024-01-14 07:35 | disposition home or self-care (01) ==
LOC: LAB.N 07:34
PROVIDERS: ATTEND Physician Assistant Medical
DX: E11.40 Type 2 diabetes mellitus with diabetic neuropathy, unspecified (principal)
CPT/HCPCS: 36415; 80048; 80061; 83036; 83721

== ENCOUNTER 2024-03-23 15:10 | Outpatient (CLI) | payer MEDICAID ==
--- NOTE | 2024-03-23 16:29 | MRI Report ---
PROCEDURE: Lumbar Spine WO INDICATIONS: LOW BACK PAIN TECHNIQUE: Noncontrast sagittal T1 spin echo and T2 fast echo, sagittal STIR, axial T1 and T2 fast spin echo thr ough the lumbar spine. In cases with scoliosis, additional coronal T2 fast spin echo may be performe d. COMPARISON: X-ray lumbar spine 01/28/2024. FINDINGS: Image quality: Excellent. Alignment and Curvature: There is normal bony alignment. Bone Marrow: Chronic mild anterior wedging of T12. Multilevel Modic type I and type II degenerative endplate changes, most pronounced at L2-L3. T11 vertebral body hemangioma. Marrow is of normal overal l signal. No acute vertebral body compression fractures. Spinal Cord: Conus medullaris terminates at the L1-L2 level. Visualized cord demonstrates normal si gnal and size. Paraspinous Soft Tissues: No paravertebral masses. Bilateral simple appearing renal cysts. T12-L1: Disc desiccation and mild height loss. Minimal disc bulge. No central canal or neuroforamina l stenosis. L1-L2: Disc desiccation and mild posterior disc bulge. No central canal or neuroforaminal stenosis . L2-L3: Disc desiccation and height loss. Mild diffuse disc bulge. Facet arthropathy and thickening of ligamenta flava. Mild central canal stenosis. Moderate left and mild to moderate right neural for aminal stenosis. L3-L4: Disc desiccation and mild disc bulge. Facet arthropathy and thickening of ligamentum flavum. Small superimposed central disc protrusion. Mild central canal stenosis. No significant neuroforamin al stenosis. L4-L5: Disc desiccation. Facet arthropathy and thickening of ligamentum flavum. No significant cent ral canal stenosis. No neuroforaminal stenosis. L5-S1: Disc desiccation and small central disc protrusion. Facet arthropathy. No central canal sten osis. No neuroforaminal stenosis. IMPRESSION: 1.Degenerative changes of the lumbar spine as described above. 2.Mild central canal stenosis at L2-L3 and L3-L4. 3.Moderate left neuroforaminal stenosis at L2-L3. Additional levels of mild neuroforaminal stenosis a s above. 4.Chronic mild anterior wedging of T12. No acute vertebral body compression deformities. Reviewed by: Darryl Branch MD on 03/23/2024 4:28 PM PDT Approved by: Darryl Branch MD on 03/23/2024 4:28 PM PDT Station ID: [id number]
== END 2024-03-23 15:11 | disposition home or self-care (01) ==
LOC: DI 15:10
PROVIDERS: ATTEND Nurse Practitioner Family
DX: M47.816 Spondylosis without myelopathy or radiculopathy, lumbar region (principal); M51.36 Other intervertebral disc degeneration, lumbar region; M48.061 Spinal stenosis, lumbar region without neurogenic claudication; M51.27 Other intervertebral disc displacement, lumbosacral region; M47.817 Spondylosis without myelopathy or radiculopathy, lumbosacral region; M48.54XA Collapsed vertebra, not elsewhere classified, thoracic region, initial encounter for fracture; M51.37 Other intervertebral disc degeneration, lumbosacral region